=== PATIENT | male | born 1990 | race Caucasian/White ===

== ENCOUNTER 2018-12-18 16:30 | Observation (INO) | payer MEDICARE, MEDICAID, SELFPAY ==
[2018-12-18] VITALS (14 sets, daily range): BP systolic 105; BP diastolic 67; PULSE 67–85; RESP 16; O2SAT 96–97
[2018-12-18] MEDS: Haloperidol 5 MG/ML VIAL (17:30)
[2018-12-18] MEDS: LORazepam 2 MG/ML VIAL (17:30)
[2018-12-18] MEDS: Haloperidol 5 MG/ML VIAL IM/IV (17:30)
[2018-12-18] MEDS: LORazepam 1 MG TAB PO (17:53)
[2018-12-18] MEDS: diphenhydrAMINE 25 MG CAP 50 MG PO (17:53)
--- NOTE | 2018-12-18 17:58 | PDOC.CMSAFED ---
- If Service Date Differs Date of service: 12/18/18 Time of Service: 17:58 Care Management Safety Plan Vita is 28 year old male with a history of TBI brought to the ED for Reported behavioral changes and Reports confusion Reports anxiety, Reports behavioral changes, Reports confusion,auditory hallucinations, irritability, mood swings, paranoia. Reports visual hallucinations, tactile hallucinations, denies homicidal ideation, per provider. Vita became violent earlier this evening in the ED and per report was threatening harm and physical violence to multiple staff members he was allowed to leave the ED as he was threatening with bodily harm and was not restrainable at that time. He was returned to the ED by [facility], he placed in four point restraints and given medications to treat acute symptoms of psychosis. After reviewing his medications he appears to have taken all his Vyvanse since filling on 12/05/18. He was prescribed 30 tablets only one remains in the bottle. His mom reports that he has not been sleeping due to delusions which he reports to his parents if he falls asleep everyone will . Patient remains in 4 point restraints, [employer] is at the bedside and physical testing supervisor has coordinated [employer] coverage over night. Restraint protocol was printed and reviewed as well as managing the behavioral health patient. Crisis provider Anna Rosenberg through [facility] is present during the huddle there is no beds available at this time. Patient is an elopement and risk for harming self and others and will remain in the ED overnight. Second certification by psychiatrist to occur in the next 24 hours patient will remain INVOLUNTARY FOR INPATIENT PSYCHIATRIC STABILIZATION. is his psychiatric provider in [place] at [facility]. Huddle: Tracer Powder Blender Vinny RAGLAND, [place] Provider, ELLYN ROSA, [facility] crisis and ANGELA RAGLAND CM. Safety plan has been established with patient, and care team, to adhere to patient goals, identify restrictions based on behavioral status, address nutrition, and determine allowed personal belongings, tools for hygiene and personal care. Determine level of activity including ambulation, level of supervision, visitors, and determine privileges based on behaviors and level of engagement by pt. SAFETY PLAN: 1. Will remain on suicide precautions. In Paper Clothes 2. Will remain in room under direct supervision of one-on-one staff at all times provided by [employer]; MARGRET, JUHI fabric machine operator. 3. May have paper cups, plates, finger foods, cardboard utensils if approbate. 4. Follow [facility] Management of the Admitted Behavioral Health Patient policy.and restraint protocol. 5. Comfort bath system only. 6. No personal belongings 7. Visitors- Olga and Marco Carriers [phone] 8. Activities:- none at this time 9. Bathroom privileges with direct supervision at all times 10. Phone: none at this time. 11. Due to INVOLUNTARY status, patient may not leave [facility], and the [facility] workers compensation legal secretary must be contacted if assistance is needed to to manage the patient. Patient is currently involuntarily at [facility] and seeking inpatient admission when a bed becomes available. [facility] Frontline Vest Tailor will continue seeking placement. Please contact the Powder Worker Tnt Offset Second Press Operator ([phone]) and [facility] Vest Tailor ([phone]) for any needed changes in the Safety Plan. Safety plan has been provided to interdepartmental care team.
--- NOTE | 2018-12-18 18:35 | W.ED.GENAD ---
Discharge Plan Disposition Condition: Stable Discharge Details Chief Complaint: PsychEval Admit Date/Time: 12/19/18 13:01 Admit Provider: Gorge Krause Attending Provider: Gorge Krause Primary Care Provider: Guillermo Marmolejo ED Provider: Jaguar Zuluaga Discharge Instructions Activity:: Activity as Tolerated Equipment/Supplies:: No Equipment Needed Diet:: As Tolerated Discharge Orders Discharge Orders: Discharge Order (Routine); Ordered 12/20/18 Ordered By: Gorge Krause Discharge Data Discharge Date/Time-TO BE ENTERED AT DEPARTURE: 12/19/18 13:18 Medical Decision Making <Rashi Rasmussen NP - Last Filed: 12/25/18 23:12> Patient presenting to the emergency department via EMS and state police due to parents concern of psychosis. States that patient has been paranoid and had increasing delusions that seem to worsen acutely in the last 24 hours. Mother states that she has been going along with these delusions throughout the day today to try to get him to the emergency department. Patient feels that he is being chased and followed by somebody, that he has an implant in his arm, that the aliens are out to get him. Upon arrival to emergency department patient was calm but as soon as [facility] police left he became acutely and rapidly agitated and aggressive towards staff, threatening staff with physical violence if we would not allow him to leave, paranoid that people were communicating with the government on the computers about him being here. I feel this is due to his paranoia and there is significant concern for staff and patient safety code vanessa was called but due to patient's severe physical aggression we were not at a point to de-escalate him verbally and attempting to perform physical takedown was impossible due to patient grabbing a fire extinguisher and threatening to spray or throw it at people, grabbing wheelchairs and slamming them towards the wall if we did not let him go. [facility] police was called and due to patient's severe physical aggression patient was allowed to leave given that [facility] police were coming to the hospital to assist. I was personally involved in attempting to de-escalate the patient and can verify that patient was extremely violent and both patient and staff members were at risk to attempt to physically restrain patient. [facility] police were able to restrain patient and bring him back in handcuffs and he was again calm upon arrival to emergency department at approximately 1715. Patient was immediately put in four-point restraints and was agreeable to receiving Haldol, Ativan, and Benadryl IM. Patient took Haldol and half of Ativan injection when he refused any further IM meds. Patient did receive 5 mg Haldol, and 1 mg Ativan. he requested p.o. medications which I feel is reasonable and he was given additional 50 mg p.o. Benadryl and 1 mg p.o. Ativan. Due to staff safety patient remained in restraints. Did speak with parents whom stated that patient has declined rapidly over the last 24 hours. 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 Review of medications shows that patient was prescribed Vyvanse on 12/05/18 and given 30 tablets which there is only one tablet remaining in bottle. This abuse of patient's Vyvanse may be direct correlating with patient's acute paranoia given mother's report of historical events causing amphetamine induced paranoia and psychosis. Mother also states when attempting to bring patient to emergency department that he began getting very agitated at a vehicle behind them and she was concerned that patient was going to be acutely violent which is not happened in the past but she was concerned for this severe aggression he was displaying. [id number] was performed for removal of restraints, patient is continuing to be calm and sedate but arousable again due to such severe aggression and rapid behavior change I do feel that four-point restraints are still required. Order was renewed due to patient's previous rapid escalation of behavior secondary to paranoia. Mother did talk with screener and inform screener after she was told about patient's excessive use of his Vyvanse that patient has been informing her that if he falls asleep that everyone will so that he has been more than likely taking additional Vyvanse so that he would not sleep. Mother does state concern for acute paranoid psychosis once patient wakes up. 2102 patient reassessed for reevaluation of restraints and patient is calm and cooperative so plan to remove restraints. Patient was informed that if he needs sleep aids or becomes agitated to inform staff before he escalates. Patient is agreeable to this plan. HPI <Rashi Rasmussen NP - Last Filed: 12/25/18 23:12> General Mode of arrival: EMS. Date/Time Provider Initiated Documentation: 12/18/18 16:38. Limitations to Documentation: altered mental status (Acute psychosis, agitation, aggression). Information obtained by: patient, family, police, RN/MD, EMS and RN notes reviewed. History of Present Illness 28 year old M presents to the emergency department with the chief complaint of Acute psychosis, described as severe and similar to prior episodes, Patient started experiencing this month(s) (1) and it has been constant. No relieving factors improve symptom(s), Other factors that worsen symptoms (Amphetamine intake) . Patient did receive the following treatments prior to arrival, none Related Data Home Medications Medication Instructions Recorded Confirmed Vyvanse 50 mg PO DAILY 12/18/18 12/18/18 clonidine HCl 0.2 mg PO TID 12/18/18 12/18/18 ibuprofen 600 mg PO Q8H PRN 12/18/18 12/18/18 paroxetine HCl 40 mg PO DAILY 12/18/18 12/18/18 risperidone 2 mg PO DAILY 12/18/18 12/18/18 lamotrigine 200 mg PO BID 12/19/18 12/19/18 Allergies Allergy/AdvReac Type Severity Reaction Status Date / Time phenytoin [From Dilantin] Allergy Severe Unverified 12/19/18 05:36 General Stated Complaint: PsychEval SEBASTIÁN: 2 Review of Systems <Rashi Rasmussen NP - Last Filed: 12/25/18 23:12> Review of Systems Unobtainable due to mental condition Neurologic Reports behavioral changes and Reports confusion Psychiatric Reports anxiety, Reports behavioral changes, Reports confusion, Reports auditory hallucinations, Reports irritability, Reports mood swings, Reports paranoia, Reports visual hallucinations, Reports tactile hallucinations and Denies homicidal ideation PFSH <Rashi Rasmussen NP - Last Filed: 12/25/18 23:12> Medical History DVT prophylaxis (Acute) Seizure (Acute) 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) TBI (traumatic brain injury) (Acute) Social History Smoking/Tobacco Use Status: Never Alcohol Intake: never Substance use type: does not use Exam <Rashi Rasmussen NP - Last Filed: 12/25/18 23:12> Const General: anxious and combative Orientation: alert and awake Limitations: altered mental status and behavioral limitations Psych Speech and Movement: agitated and restless Mood: anxious mood, paranoid and irritable mood Affect: hostile and irritable affect Attitude: refuses to answer Thought Process: illogical Thought Content: delusions, hallucinations auditory, visual and tactile, no homicidality, phobias and suicidality Insight: poor Judgment: poor Course <Rashi Rasmussen NP - Last Filed: 12/25/18 23:12> Respiratory Effort Non-Labored 12/18/18 16:29 Restraint Face to Face <Rashi Rasmussen NP - Last Filed: 12/25/18 23:12> Time of Face to Face Face to Face: Time of Face to Face: 17:15 Patient's Immediate Situation Requiring Restraints/Seclusion: Harm to Staff & Others Patient Response to Restraints: Remains Agitated and Restless Need for Continuation of Restraints Has Been Assessed: Restraints Continued 2nd Face to Face: Time of Face to Face: 19:05 Patient's Immediate Situation Requiring Restraints/Seclusion: Harm to Staff & Others Patient Response to Restraints: Tolerating without Problems Need for Continuation of Restraints Has Been Assessed: Restraints Continued Sign Out <Rashi Rasmussen NP - Last Filed: 12/25/18 23:12> Sign Out Data: Sign Out Comment: Patient pending emergency evaluation and psychiatric bed placement due to acute psychosis. Patient signed out to Dr. Buchanan for further monitoring. Last updated by Rashi Rasmussen NP at 12/18/18 21:58 Sign Out Comment: pending psychiatric bed placement Last updated by Isaias Buchanan MD at 12/19/18 05:50
[2018-12-18 20:38] LABS: Abs Immature Grans 0.02 k/cumm (0.0-0.09); Absolute Basophil Count 0.02 k/cumm (0.0-0.2); Absolute Eosinophil Count 0.22 k/cumm (0.0-0.7); Absolute Lymphocyte Count 3.42 k/cumm (1.2-3.4); Absolute Monocyte Count 0.84 k/cumm (0.11-0.7); Absolute Neutrophil Count 4.27 k/cumm (1.2-6.7); Basophils % 0.2; Eosinophils % 2.5; HCT 42.3 % (40.0-50.0); Immature Grans % 0.2; Lymphocytes % 38.9; Mean Corp. HGB Concentration 35.5 g/dL (32.0-36.0); Mean Corpuscular Hemoglobin 32.1 pg (27.0-33.0); Mean Corpuscular Volume 90.6 fL (80-95); Monocytes % 9.6; Neutrophils % 48.6; Platelet Count 200 x1000/uL (130-400); RBC 4.67 m/cumm (4.50-6.00); RBC Distribution Width 12.7 % (11.8-14.1); White Blood Cell Count 8.79 k/cumm (4.4-10.8)
[2018-12-18 21:04] LABS: ALT 16 U/L (12-78); AST 15 U/L (15-37); Albumin 3.8 g/dL (3.4-5.0); Alkaline Phosphatase 65 U/L (46-116); Anion Gap 9.1 mmol/L (3-11); BUN 6 mg/dL (7-18); Bilirubin, Total 0.4 mg/dL (0.2-1.0); CO2 26.9 mmol/L (21.0-32.0); CREATININE 1.18 mg/dL (0.70-1.30); Calcium 8.8 mg/dL (8.5-10.1); Chloride 101 mmol/L (98-107); ETHANOL BLOOD 9.2 mg/dL (<3); Glucose 97 mg/dL (70-100); Potassium 4.2 mmol/L (3.5-5.1); Sodium 137 mmol/L (136-145); TSH 1.53 uIU/mL (0.36-3.74); Total Protein 7.6 g/dL (6.4-8.2)
--- NOTE | 2018-12-18 21:29 | NUR.NOTE ---
Nursing Note:See rapid response for all vital sign documentation.
[2018-12-18 21:53] LABS: Salicylate 6.4 mg/dL (2.8-20.0)
[2018-12-18 21:56] LABS: Acetaminophen < 2 ug/mL (10-30)
[2018-12-19] MEDS: LORazepam 1 MG TAB PO ×3 (03:30→18:05)
[2018-12-19 03:41] LABS: Bilirubin Negative (Negative); Blood Negative (Negative); Clarity Clear (Clear); Glucose Negative (Negative); Ketones Negative (Negative); Leukocyte Esterase Negative (Negative); Nitrite Negative (Negative); Urobilinogen 0.2 EU/dL (Up TO 0.2); pH 6.5 (5-8)
[2018-12-19 03:52] LABS: *AMPHETAMINES SCREEN URINE POSITIVE (Negative); *BARBITURATES SCREEN URINE Negative (Negative); *BENZODIAZEPINES SCREEN URINE Negative (Negative); Cannabinoids THC POSITIVE (Negative); Cocaine Screen,Urine Negative (Negative); METHADONE URINE SCREEN Negative (Negative); OPIATES URINE SCREEN Negative (Negative)
[2018-12-19 03:53] LABS: Tricyclic Antidepressants Negative (Negative)
[2018-12-19] MEDS: cloNIDine 0.1 MG TAB 0.2 MG PO ×3 (08:26→21:04)
[2018-12-19] MEDS: lamoTRIgine 100 MG TAB 200 MG PO ×2 (08:26→21:04)
[2018-12-19] MEDS: PARoxetine 20 MG TAB 40 MG PO (08:27)
[2018-12-19] MEDS: risperiDONE 1 MG TAB 2 MG PO (08:27)
[2018-12-19] MEDS: diphenhydrAMINE 25 MG CAP PO (08:39)
--- NOTE | 2018-12-19 10:14 | NUR.NOTE ---
Nursing Note: Paroxetine 20 mg was received from pharmacy. Order reads 40mg PO. MD Zuluaga made aware. Waiting for additional 20mg from Pharmacy. PT reports that he typically takes these medication in the evening.
[2018-12-19 10:37] VITALS: BP 109/65; PULSE 86; RESP 14; TEMP 36.4; O2SAT 97
--- NOTE | 2018-12-19 11:38 | PDOC.MHCN_ITS ---
Date of service: 12/19/18 Time of Service: 11:38 Mental Health Crisis Note Presenting Issue How did you arrive at the ED and why did you come: Vita remains at [facility] awaiting a psych placement. He first came to the hospital last evening via police due to psychosis. Precipitating Factors Vita is delusional and paranoid. When I meet with him today, he at first mumbles and is difficult to understand. He out of the blue becomes more alert and talks about his vaporizer and pen having a tracking device in it and asks for a new vaporizer and pen. He [place] and says his mom knows where it is. He ignores questions asked of him and slips back to sleep. Disposition BEHAVIOR: Calm. EYE CONTACT: Poor. MOOD: Sleepy. AFFECT: Paranoid. APPETITE: Unknown. SLEEP(trouble falling/staying asleep: Good at [facility] but had gone several days with no sleep prior to coming to the hospital. Plan Referrals are faxed to [facility] and [facility] but there are no beds available currently. Vita will, therefore, remain at [facility] on involuntary status while [facility] continues to seek a placement for him. Dr. Zuluaga is consulted with this plan and he is in agreement. Signature Clinician's Name/Title: Keren Noguera BA, [facility] Senior Executive Compensation Analyst
[2018-12-19 14:15] VITALS: BP 119/80; PULSE 81; RESP 18; TEMP 36.3; O2SAT 98
[2018-12-19] MEDS: Nicotine 21 MG/24 HR PATCH TD (14:40)
--- NOTE | 2018-12-19 15:20 | CMPROGNOTE_ITS ---
Care Management Progress Note Vita was lying in bed, sleeping when CM entered the room for 2nd Cert with Dr. Berman, Psychiatrist. Dr. Berman approved 2nd Certification due to ongoing delusional thought process. Vita presents with paranoia and believes the government is monitoring and after him. During the interview he told the Psychiatrist that he shaved his head so they wouldn't find him but then his parents [facility] to [facility]. He struggled with the idea of communicating over the IPAD and verbalized to the Psychiatrist that he did not trust that the communication was secure and could not be fully forthcoming. He did share that he does not like hospitals and would not seek treatment. Due to Vita's previous reactions to media, television and electronics will be kept at a minimum for a period of further observation. No changes to safety plan. Safety plan has been established with patient, and care team, to adhere to patient goals, identify restrictions based on behavioral status, address nutrition, and determine allowed personal belongings, tools for hygiene and pe rsonal care. Determine level of activity including ambulation, level of supervision, visitors, and determine privileges based on behaviors and level of engagement by pt. SAFETY PLAN: 1. Will remain on suicide precautions and in paper clothes. 2. Will remain in room under direct supervision of one-on-one staff at all times provided by [employer]; MARGRET, FISHING ROD ASSEMBLER associate professor of philosophy. 3. May have paper cups, plates, finger foods, cardboard utensil. 4. Follow [facility] Management of the Admitted Behavioral Health Patient policy and restraint protocol. 5. Comfort bath system only. 6. No personal belongings 7. Visitors- Olga and Marco Abdalla P#[phone] 8. No activities at this time; low stimulation, calm environment recommended. 9. Bathroom privileges permitted with direct supervision at all times. 10. No phone contact at this time. 11. Due to INVOLUNTARY status, patient is being held involuntary by [facility] at [facility] and is not be permitted to leave. Patient is currently involuntarily at [facility] and [facility] and [facility] are seeking inpatient admission when a bed becomes available. [facility] Frontline Rotary Peel Oven Tender will continue seeking placement. Please contact the Tool Distributor Manager Integrity ([phone]) and [facility] Rotary Peel Oven Tender ([phone]) for any needed changes in the Safety Plan. Safety plan has been provided to interdepartmental care team.
--- NOTE | 2018-12-19 15:30 | W.PM.HP.N ---
Date of service: 12/19/18 Time of Service: 15:30 Assessment and Plan (1) Psychosis: Start date: 12/19/18 Start time: 15:59 Current visit: Yes Status: Acute Having delusions for 2 days of hallucinations and someone chasing him. Afraid to go to sleep because someone will kill his family. Suspicion of taking too much vyvanse which could have led to his psychosis.He also has not slept in days. He was given a shot in the ED of benadryl, haldol and ativan after being physically and verbally abusive. He is EE and meeting with for second cert today. On the floor he is tired but calm. 1:[address] Continue to monitor. (2) TBI (traumatic brain injury): Start date: 12/19/18 Start time: 15:46 Current visit: Yes Status: Acute Secondary to TBI, continue paxil (3) Seizure: Start date: 12/19/18 Start time: 16:15 Current visit: Yes Status: Acute Seizures from TBI continue lamictal has not had seizure recently. (4) DVT prophylaxis: Start date: 12/19/18 Start time: 16:16 Current visit: Yes Status: Acute not indicated in a 28 y.o ambulatory male. History of Present Illness Chief Complaint: PSYCHOSIS Narrative: 28 y.o male with PMH of TBI, seizures presents [facility] department today after having 2 days of delusions that someone is trying to harm him or his family. While in the emergency department the patient became aggressive and agitated being abusive toward staff and threatening with physical violence. [facility] police were called and the patient was restrained he was given Haldol, Ativan and Benadyrl IM for his aggression after being placed in four point restraints. His parents state he has rapidly declined over the last 24 hours and there is question of accidental overdose of Vyvanse as patient had prescription filled on 12/08 and only a few tabs were left, which would attribute to his psychosis.He is being admitted on EE with evaluation. On assessment he was cooperative and tired. He did not give much history. He denied SI/HI. He states seeing people and girls, but he doesn't pay attention to the girls. He would not say much else but he was tired. He will be evaluated by for a second cert tonight. He did not appear in any pain or difficulty with breathing.l Review of Systems Review of Systems All systems reviewed & are unremarkable except as noted in HPI and below Constitutional Reports as per HPI Eyes Reports system reviewed and no additional complaints, except as docu ENT Reports system reviewed and no additional complaints, except as docu Cardiovascular Reports system reviewed and no additional complaints, except as docu Respiratory Reports system reviewed and no additional complaints, except as docu Gastrointestinal Reports system reviewed and no additional complaints, except as docu Genitourinary Reports system reviewed and no additional complaints, except as docu Musculoskeletal Reports system reviewed and no additional complaints, except as docu Integumentary/Breasts Reports system reviewed and no additional complaints, except as docu Neurologic Reports as per HPI and Reports behavioral changes Psychiatric Reports as per HPI and Reports behavioral changes Endocrine Reports system reviewed and no additional complaints, except as docu Hematologic/Lymphatic Reports system reviewed and no additional complaints, except as docu Allergic/Immunologic Reports system reviewed and no additional complaints, except as docu PFSH Medical History 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) TBI (traumatic brain injury) (Acute) Social History Smoking/Tobacco Use Status: Never Alcohol Intake: never Substance use type: does not use Meds Home Medications Medication Instructions Recorded Confirmed Type clonidine HCl 0.2 mg PO TID 12/18/18 12/18/18 History ibuprofen 600 mg PO Q8H PRN 12/18/18 12/18/18 History lisdexamfetamine [Vyvanse] 50 mg PO DAILY 12/18/18 12/18/18 History paroxetine HCl 40 mg PO DAILY 12/18/18 12/18/18 History risperidone 2 mg PO DAILY 12/18/18 12/18/18 History lamotrigine 200 mg PO BID 12/19/18 12/19/18 History Allergies Allergy/AdvReac Type Severity Reaction Status Date / Time phenytoin [From Dilantin] Allergy Severe Unverified 12/19/18 05:36 Exam Const General: healthy appearing, comfortable and no acute distress Orientation: alert, awake and oriented x3 HENMT Head: normal to inspection Eyes General: appearance normal, both eyes and all related structures Neck Neck: normal visual inspection Chest Chest: normal inspection of the chest Resp Effort & Inspection: normal respiratory effort and able to speak in complete sentences Auscultation: clear to auscultation bilaterally Cardio Jugular venous pressure: no JVD Palpation: normal PMI Rate: regular rate Rhythm: regular rhythm Heart Sounds: S1 normal and S2 normal GI Inspection: normal to inspection Auscultation: normal bowel sounds Back/Spine/Pelvis Back: no CVA tenderness Skin Other: unable to examine as patient was in gown Neuro General: alert and awake Extrem General: normal to inspection Right upper extremity: normal to inspection Left upper extremity: normal to inspection Right lower extremity: normal to inspection Left lower extremity: normal to inspection Psych Mood: paranoid Affect: indifferent Attitude: cooperative Thought Content: delusions and hallucinations Results Labs : 12/18/18 20:25 12/18/18 20:25 Laboratory Results - last 24 hr 12/18/18 12/18/18 12/18/18 20:25 20:25 20:25 WBC 8.79 RBC 4.67 Hgb 15.0 Hct 42.3 MCV 90.6 MCH 32.1 MCHC 35.5 RDW 12.7 Plt Count 200 MPV 9.0 Immature Gran % 0.2 Neutrophils % 48.6 Lymphocytes % 38.9 Monocytes % 9.6 Eosinophils % 2.5 Basophils % 0.2 Absolute Neutrophils 4.27 Absolute Lymphocytes 3.42 H Absolute Monocytes 0.84 H Absolute Eosinophils 0.22 Absolute Basophils 0.02 Sodium 137 Potassium 4.2 Chloride 101 Carbon Dioxide 26.9 Anion Gap 9.1 BUN 6 L Creatinine 1.18 Estimated GFR/1.73 m2 >= 60.00 Glucose 97 Calcium 8.8 Total Bilirubin 0.4 AST 15 ALT 16 Alkaline Phosphatase 65 Total Protein 7.6 Albumin 3.8 TSH 1.53 Urine Color Urine Clarity Urine pH Ur Specific [place]sof Urine Protein Urine Ketones Urine Blood Urine Nitrite Urine Bilirubin Urine Urobilinogen Ur Leukocyte Esterase Urine Glucose Salicylates 6.4 Urine Opiates Screen Urine Methadone Screen Acetaminophen < 2 L Ur Barbiturates Screen Ur Tricyclics Screen Ur Amphetamines Screen U Benzodiazepines Scrn Urine Cocaine Screen Ur THC Screen Ethyl Alcohol 9.2 12/19/18 12/19/18 03:25 03:25 WBC RBC Hgb Hct MCV MCH MCHC RDW Plt Count MPV Immature Gran % Neutrophils % Lymphocytes % Monocytes % Eosinophils % Basophils % Absolute Neutrophils Absolute Lymphocytes Absolute Monocytes Absolute Eosinophils Absolute Basophils Sodium Potassium Chloride Carbon Dioxide Anion Gap BUN Creatinine Estimated GFR/1.73 m2 Glucose Calcium Total Bilirubin AST ALT Alkaline Phosphatase Total Protein Albumin TSH Urine Color Yellow Urine Clarity Clear Urine pH 6.5 Ur Specific [place]sof 1.010 Urine Protein Negative Urine Ketones Negative Urine Blood Negative Urine Nitrite Negative Urine Bilirubin Negative Urine Urobilinogen 0.2 Ur Leukocyte Esterase Negative Urine Glucose Negative Salicylates Urine Opiates Screen Negative Urine Methadone Screen Negative Acetaminophen Ur Barbiturates Screen Negative Ur Tricyclics Screen Negative Ur Amphetamines Screen Positive U Benzodiazepines Scrn Negative Urine Cocaine Screen Negative Ur THC Screen Positive Ethyl Alcohol Last Vital Signs Temp 36.3 C L 12/19/18 14:15 Pulse 81 12/19/18 14:15 Resp 18 12/19/18 14:15 BP 119/80 12/19/18 14:15 Pulse Ox 98 12/19/18 14:15
[2018-12-20] MEDS: LORazepam 1 MG TAB PO ×2 (04:29→08:30)
[2018-12-20] MEDS: Ibuprofen 600 MG TAB PO (04:45)
[2018-12-20] MEDS: Nicotine 21 MG/24 HR PATCH (04:45)
--- NOTE | 2018-12-20 05:29 | NUR.NOTE ---
pt's nicotine patch fell on floor when pt was going to BR. DALTON Funes pulled scheduled patch for 829 and replaced at this time.
[2018-12-20] MEDS: lamoTRIgine 100 MG TAB 200 MG PO (08:01)
[2018-12-20] MEDS: cloNIDine 0.1 MG TAB 0.2 MG PO ×2 (08:02→14:09)
[2018-12-20] MEDS: PARoxetine 20 MG TAB 40 MG PO (08:02)
[2018-12-20] MEDS: risperiDONE 1 MG TAB 2 MG PO (08:02)
--- NOTE | 2018-12-20 08:17 | CMPROGNOTE_ITS ---
Care Management Progress Note 0810 RN entered CM office to provide status update and plan for supporting Vita. Planning central to notification to [employer] responders of escalating situation as Vita is demanding to go outside and smoke a cigarette and wants television. Adult coloring and other soft manipulatives will be provided. Limit setting for Vita will be the focus; patient education around inability to safely allow Vita to exit the building due to involuntary status and safety planning as he is reacting negatively to electronic stimuli due to cameras in the transition bed area. CM encouraged RN to identify [employer] [place] responders and their roles if intervention is required. As well notification to ER team and Maintenance. 0829 Staff response to Vita's behavioral escalation. Vita was posturing, yelling about going outside to pray and smoke. Multiple staff responded outside of the transition bed area for preventative support. 0839 ordered IM injection of which Vita agreed to due to escalating behavior. 4523 AMADOU spoke with Keren; QMREVA at [facility] regarding planning for placement. Keren reported she would be arriving to [facility] soon and stated she had called all [facility] She shared that [facility] was expected discharges and [facility] anticipated [place] may have availability and Vita would be prioritized. CM offered updated clinicals as Vita was agreeable to medication management when unable to regulate himself appropriately and had a good night overnight. AMADOU printed updated clinicals for Keren when she arrives and continues to coordinate placement. 1030 Keren of [facility] arrived to meet with Vita 1045 AMADOU, RN and Keren discussed treatment planning and safety planning for Vita who continues to make demands for smoking outside and television. Recommendation to limit set and not permit increased privilege discussion until Vita has presented with a period of further observation.
[2018-12-20] MEDS: LORazepam 2 MG/ML VIAL IM (08:50)
[2018-12-20] MEDS: Haloperidol 5 MG/ML VIAL (08:50)
--- NOTE | 2018-12-20 09:02 | CMSP_ITS ---
Care Management Safety Plan Safety plan has been established with patient, and care team, to adhere to patient goals, identify restrictions based on behavioral status, address nutrition, and determine allowed personal belongings, tools for hygiene and personal care. Determine level of activity including ambulation, level of supervision, visitors, and determine privileges based on behaviors and level of engagement by pt. SAFETY PLAN: 1. Will remain on suicide precautions and in paper clothes. 2. Will remain in room under direct supervision of one-on-one staff at all times provided by [employer]; MARGRET, SUPERVISOR BLOOD inspector repairer sandstone. 3. May have paper cups, plates, finger foods, cardboard utensil. 4. Follow [facility] Management of the Admitted Behavioral Health Patient policy and restraint protocol. 5. Comfort bath system only. 6. No personal belongings 7. Visitors- Olga and Marco Abdalla P#[phone] 8. No activities at this time; low stimulation, calm environment recommended. 9. Bathroom privileges permitted with direct supervision at all times. 10. No phone contact at this time. 11. Due to INVOLUNTARY status, patient is being held involuntary by [facility] at [facility] and is not be permitted to leave. Patient is currently involuntarily at [facility] and [facility] and [facility] are seeking inpatient admission when a bed becomes available. [facility] [employer] Whe[employer] And Axle Inspector will continue seeking placement. Please contact the Merchandise Examiner Press Officer ([phone]) and [facility] Railroad Wheels And Axle Inspector ([phone]) for any needed changes in the Safety Plan. Safety plan has been provided to interdepartmental care team.
--- NOTE | 2018-12-20 09:02 | PDOC.CMSAFE ---
Care Management Safety Plan Safety plan has been established with patient, and care team, to adhere to patient goals, identify restrictions based on behavioral status, address nutrition, and determine allowed personal belongings, tools for hygiene and personal care. Determine level of activity including ambulation, level of supervision, visitors, and determine privileges based on behaviors and level of engagement by pt. SAFETY PLAN: 1. Will remain on suicide precautions and in paper clothes. 2. Will remain in room under direct supervision of one-on-one staff at all times provided by [employer]; MARGRET, CITY BUS DRIVER senior product manager. 3. May have paper cups, plates, finger foods, cardboard utensil. 4. Follow [facility] Management of the Admitted Behavioral Health Patient policy and restraint protocol. 5. Comfort bath system only. 6. No personal belongings 7. Visitors- Olga and Marco Abdalla P#[phone] 8. No activities at this time; low stimulation, calm environment recommended. 9. Bathroom privileges permitted with direct supervision at all times. 10. No phone contact at this time. 11. Due to INVOLUNTARY status, patient is being held involuntary by [facility] at [facility] and is not be permitted to leave. Patient is currently involuntarily at [facility] and [facility] and [facility] are seeking inpatient admission when a bed becomes available. [facility] [employer] Stainer will continue seeking placement. Please contact the Farm Product Purchaser Paediatric Thoracic Physician ([phone]) and [facility] Wood Stainer ([phone]) for any needed changes in the Safety Plan. Safety plan has been provided to interdepartmental care team.
--- NOTE | 2018-12-20 09:55 | NUTRITION ---
At approximately 08:00 am nursing approached the patient for assessment and morning medications. The patient appeared agitated and was stating I want to go outside, I want so smoke my e-cigarette and my dabs. Nursing told the patient that per policy that would not be possible. He then asked if he could watch TV, which nursing stated would need to go through the team so that his safety plan could be updated. The patient took his medications, but was too agitated at that time for staff to physically assess him. The patient then made the statement There are guys out there in cars, I need to watch the cars, I don't know if they're 'our guys' or not but no one is going to shoot me and If I can't go outside to smoke, I will become violent. Nursing asked who he thought they were and the patient stated It doesn't matter. The patient then talked about cameras in the boo and wires in the boo. The patient was able to settle down and became pleasant with nursing, awaiting the decision about his TV. Nursing then approached case management about the patient's safety plan, and it was decided that electronic devices are not in the patient's best interests as he tends to become agitated and believes that the government is watching him / tracking him through said devices. Nursing then approached the patient at approximately 08:30 to discuss the decision and the patient became agitated, pacing the room/hallway and yelling at staff. Due to the patient's behavior and physical closeness with staff, it was decided that a code rios should be called and the patient would need restraints. IM medication was ordered. The physician (Kathy Krause) went in to speak to the patient and the patient was able to become less physically aggressive. At that time nursing re-approached the patient and asked the patient if he would be willing to take the ordered IM medication. The patient agreed. After medication administration the patient was able to maintain control over his behavior and restraints were not applied. Currently (10:17) the patient is in bed, sleeping.
--- NOTE | 2018-12-20 11:04 | PDOC.MHCN ---
Date of service: 12/20/18 Time of Service: 11:04 Mental Health Crisis Note Presenting Issue How did you arrive at the ED and why did you come: Vita remains at [facility] awaiting a psych placement. He first arrived at the hospital on Wednesday evening due to paranoia and delusions and was subsequently placed on involuntary status. Precipitating Factors Vita does not answer questions asked of him. He is very focused on trying to get e-cigarettes, marijuana and access to the television. He demands to be allowed to go outside to smoke and or be allowed to use e-cigarettes in his room. He states that being in a white room is driving him crazy and he needs the e-cigarettes and marijuana to help calm him down. He goes on to say that if he is not allowed the things he is requesting, he will be leaving the hospital today. When it is explained to him that he is on involuntary status and cannot leave the hospital, he informs me that we cannot keep him here against his will and that he will find a way to leave. Vita continues to be paranoid and to experience delusions, believing that people were on the roof of the hospital watching him last night. He also believes that the wires in the wall of the room are tracking devices that are recording what he says and watching him. Disposition BEHAVIOR: Irritable and demanding. EYE CONTACT: Good, direct, intense. MOOD: Labile. AFFECT: Angry. APPETITE: Unknown. SLEEP(trouble falling/staying asleep: Poor. Plan Vita will remain at [facility] on involuntary status while [facility] continues to seek a placement for him. Per Josiane at [facility], [facility] is expecting discharges later on today and [facility] has made it clear to them that [facility] is a priority placement. [facility] is also expecting discharges today and are in the process of reviewing the referral. All other psych hospitals are full. Signature Clinician's Name/Title: Keren Noguera BA, [facility] Mechanical Tech
--- NOTE | 2018-12-20 13:22 | DSE_ITS ---
Date of service: 12/20/18 Time of Service: 13: DS: Diagnosis Discharge Diagnosis (1) Psychosis: Status: Acute (2) TBI (traumatic brain injury): Status: Acute (3) Seizure: Status: Acute Discharge Plan Disposition Patient Disposition: [facility] Condition: Stable Discharge Details Chief Complaint: PsychEval Reason For Visit: PSYCHOTIC EPISODE Admit Date/Time: 12/19/18 13:01 Admit Provider: Gorge Krause Attending Provider: Gorge Krause Primary Care Provider: Guillermo Marmolejo ED Provider: Jaguar Zuluaga Hospital Course Hospital Course: Chief Complaint: Psychosis HPI: 28 year old man with a past medical history significant for Psychosis, admitted from [facility] Emergency Department on 12/19 with a diagnosis of Psychosis. Mr. Glass has a history of TBI and seizures, as well as tobacco abuse. He presente to the ED with a 2 day history of delusions, aggression, and agitation. According to review of ED notes he reported that he was being chased and followed, that there was an implant in his arm, and that aliens were out to get him. He showed paranoid behavior, believing that the staff was communicating to the government about him via the computers. He displayed significant agitation while in the Emergency Department, at one point throwing a fire extinguisher. The patient was eventually admitted under Emergency Evaluation status, and received a second certification, and now accepted to [facility] for further psychiatric work-up and care. Of note, there are reports of multiple prior episodes of psychotic type behavior since his Traumatic Brain injury, usually induced by amphetamins. It was noted he was prescribed 30 tablets of Vyvanse on 12/05, but one 1 tablet remained in the bottle at time of admission. Routine labowrk was negative - UDS showed positive for Amphetamines and THC. The patient did require restraints in the ED (was brought in with handcuffs by [facility]'s Dept), and was placed in 4-point restraints in the ED and received Haldol, Ativan, and Benadryl. Since his admission he has received this regimen again, and has been maintained on his home regimen of Lamotrigine, Clonidine, Paroxetine, and daily risperidone, with prn ativan. This morning he was significantly agitated, wanting to leave to go out in the sun and smoke. He is being discharged in stable condition. Home Meds and New Rx's Prescriptions: Continued risperidone 2 mg Tablet 2 mg PO DAILY RF: 0 clonidine HCl 0.2 mg Tablet 0.2 mg PO TID RF: 0 ibuprofen 600 mg Tablet 600 mg PO Q8H PRNRF: 0 paroxetine HCl 40 mg Tablet 40 mg PO DAILY RF: 0 Vyvanse 50 mg Capsule 50 mg PO DAILY RF: 0 lamotrigine 200 mg Tablet 200 mg PO BID RF: 0 Discharge Instructions Activity:: Activity as Tolerated Equipment/Supplies:: No Equipment Needed Diet:: As Tolerated Discharge Orders Discharge Orders: Discharge Order (Routine); Ordered 12/20/18 Ordered By: Gorge Krause DS: Data Vitals/I&O Vitals and I&O: Vital Signs Temperature 36.3 C L 12/19/18 14:15 Temperature Source Temporal Artery Scan 12/19/18 10:37 Pulse 81 12/19/18 14:15 Pulse Rhythm Regular 12/19/18 21:08 Respiratory Rate 18 12/19/18 14:15 Respiratory Effort Non-Labored 12/19/18 21:08 Respiratory Depth Deep 12/19/18 21:08 Respiratory Pattern Normal 12/19/18 21:08 Blood Pressure 119/80 12/19/18 14:15 Pulse Oximetry 98 12/19/18 14:15 Oxygen Delivery Method Room Air 12/19/18 14:15 Oxygen Flow Rate 0 12/19/18 14:15 Pain Level 0 12/19/18 14:15 Intake & Output 12/19/18 12/20/18 12/20/18 23:59 11:59 23:59 Intake Total 300 / 300 300 / 300 Balance 300 / -700 300 / 300 Weight 76.204 kg Intake: Oral 300 / 300 300 / 300 Other: Comment pt gets up AD PETER to void. 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
[2018-12-20] MEDS: LORazepam 1 MG TAB 2 MG PO (14:09)
[2018-12-20] MEDS: diphenhydrAMINE 25 MG CAP 50 MG PO (14:09)
== END 2018-12-20 14:13 | disposition short-term general hospital (02) ==
LOC: ER 12-19 13:27 → MS 12-20 09:43
PROVIDERS: Emergency Medicine; Nurse Practitioner Family; Admitting Provider Internal Medicine; Emergency Provider Student in an Organized Health Care Education/Training Program; PCP Family Medicine; Visit Provider Internal Medicine
DX: F22 Delusional disorders (principal); Z87.820 Personal history of traumatic brain injury; F17.210 Nicotine dependence, cigarettes, uncomplicated; F15.10 Other stimulant abuse, uncomplicated; Z78.1 Physical restraint status; R56.1 Post traumatic seizures
CPT/HCPCS: 36415; 80053; 80307; 93005; 96372; 99223; 99238; 99285; 80320; 80329; 81003; 84443; 85025; 93010; 99217; 99220; 99284; J1200; J1630; J2060